=== PATIENT | female | born 1980 | race Caucasian/White ===

== ENCOUNTER 2018-08-15 19:48 | Emergency (ER) | payer OTHER ==
[2018-08-15 19:57] VITALS: BP 153/94; PULSE 85; TEMP 98.4; BMI 39.7
--- NOTE | 2018-08-15 19:59 | PDOC ---
History of Present Illness - General History Source: Patient Exam Limitations: No Limitations - History of Present Illness Initial Comments: 08/15/18 20:25 The patient is a 38 year old female with a significant past medical history of HLD who presents to the ED with 2 days of headache. Patient reports a gradual onset of a throbbing like headache on the front and back of her head on Saturday (08/13/18). She states her headache is progressively worsening and she reports photophobia, phonophobia, and nausea associated with present symptoms. Patient went to Urgent Care earlier today and was sent to the ED because she does not have a history of migraine headaches in the past. Denies fever or chills. Denies neck pain. Denies nausea. Denies chest pain or shortness of breath. Denies any other symptoms. PAST MEDICAL HISTORY: HLD PAST SURGICAL HISTORY: no significant history FAMILY HISTORY: no pertinent history SOCIAL HISTORY: Pt lives with family and is employed. MEDICATIONS: reviewed ALLERGIES: As per nursing notes General: No fevers or chills, no weakness, no weight loss HEENT: No change in vision. No sore throat,. No ear pain CardioVascular: No chest pain or shortness of breath Respiratory:No cough, or wheezing. Gastrointestinal: + nausea. no vomiting, diarrhea or constipation, No rectal bleeding Genitourinary: No dysuria, hematuria, or frequency Musculoskeletal: No joint or muscle pain or swelling Neurologic: + headache, photophobia, phonophobia. No vertigo, dizziness or loss of consciousness Psychiatric: nor depression Skin: No rashes or easy bruising Endocrine: no increased thirst or abnormal weight change Allergic: no skin or latex allergy All other systems reviewed and normal GENERAL: + Mild distress. The patient is awake, alert, and fully oriented. HEAD: Normal with no signs of trauma. NECK: No meningeal sign. EYES: Pupils equal, round and reactive to light, extraocular movements intact, sclera anicteric, conjunctiva clear. EXTREMITIES: Normal range of motion, no edema. NEUROLOGICAL: Normal speech, normal gait. PSYCH: Normal mood, normal affect. SKIN: Warm, Dry, normal turgor, no rashes or lesions noted.t <Sienna Garcia - Last Filed: 08/15/18 20:24> - General History Source: Patient Exam Limitations: No Limitations - History of Present Illness Initial Comments: 08/15/18 21:54 A portion of this note was documented by scribe services under my direction. I have reviewed the details of the note, within reason, and agree with the documentation. The case summary and management plan written by me. Head CT no acute pathology Assessment and plan: This is a 38-year-old female who comes in complaining of new onset migraine type headache. Patient does have a family history of migraines. Patient had a workup including a head CT. Patient was given Toradol and Reglan for her headache with nearly complete resolution of her symptoms. Patient discharged home with prescription for Reglan and told to get over-the- counter Motrin or Aleve. Patient has a primary care doctor to follow up with <Edel Walker I - Last Filed: 08/15/18 21:55> - General Chief Complaint: Headache Stated Complaint: HEADACHE Time Seen by Provider: 08/15/18 19:55 Past History <Sienna Garcia - Last Filed: 08/15/18 20:24> - Past Medical History COPD: No Hypercholesterolemia: Yes - Suicide/Smoking/Psychosocial Hx Smoking History: Never smoked Have you smoked in the past 12 months: No Information on smoking cessation initiated: No Hx Alcohol Use: (occasional) <Edel Walker I - Last Filed: 08/15/18 21:55> - Past Medical History Allergies/Adverse Reactions: Allergies Allergy/AdvReac Type Severity Reaction Status Date / Time No Known Allergies Allergy Verified 08/15/18 19:52 Home Medications: Ambulatory Orders Cholecalciferol (Vitamin D3) [Vitamin D3 -] 2,000 unit PO DAILY 08/15/18 Metoclopramide HCl [Reglan -] 10 mg PO TID #21 tablet 08/15/18 Vit B Comp/C/Folic/Iron/Vit E [Vitamin B Complex Tablet] 1 each PO DAILY *Physical Exam - Vital Signs Last Vital Signs Temp Pulse Resp BP Pulse Ox 98.4 F 85 18 153/94 100 08/15/18 19:48 08/15/18 19:48 08/15/18 19:48 08/15/18 19:48 08/15/18 19:48 <Sienna Garcia - Last Filed: 08/15/18 20:24> - Vital Signs Last Vital Signs Temp Pulse Resp BP Pulse Ox 98.4 F 85 18 153/94 100 08/15/18 19:48 08/15/18 19:48 08/15/18 19:48 08/15/18 19:48 08/15/18 19:48 <Edel Walker I - Last Filed: 08/15/18 21:55> *DC/Admit/Observation/Transfer - Attestations Scribe Attestion: 08/15/18 20:25 Documentation prepared by Sienna Garcia, acting as medical driver for Edel Walker MD <Sienna Garcia - Last Filed: 08/15/18 20:24> - Discharge Dispostion Decision to Admit order: No <Edel Walker I - Last Filed: 08/15/18 21:55> Diagnosis at time of Disposition: Migraine Qualifiers: Migraine type: unspecified Status migrainosus presence: without status migrainosus Intractability: not intractable Qualified Code(s): G43.909 - Migraine, unspecified, not intractable, without status migrainosus - Discharge Dispostion Disposition: HOME Condition at time of disposition: Stable - Prescriptions Prescriptions: Metoclopramide HCl [Reglan -] 10 mg PO TID #21 tablet - Patient Instructions Printed Discharge Instructions: Migraine -- Adult, DI for Migraine Additional Instructions: Your headache today is most likely a new onset of migraine-type headaches. You can take ibuprofen 3-4 tablets 3 times a day with food as needed, Follow-up with a neurologist if symptoms don't resolve over the completely over the next 48 hours. Return to the emergency department immediately with ANY new, persistent or worsening symptoms. Continue any medications as previously prescribed by your physician. You should follow up with your primary doctor as soon as possible regarding today's emergency department visit. . Please make sure your doctor reviews the results of your emergency evaluation. Thank you for coming to the Emergency Department today for your care. It was a pleasure to see you today. Please note that your evaluation is INCOMPLETE until you follow-up with your doctor.
[2018-08-15] MEDS ORDERED: METOCLOPRAMIDE HCL 10 MG TABLET (FP) PO ONE ×2 (20:25→20:27)
[2018-08-15] MEDS ORDERED: KETOROLAC TROMETHAMINE 60 MG/2 ML VIAL IM ONE (21:00)
[2018-08-15] MEDS ORDERED: KETOROLAC TROMETHAMINE 60 MG/2 ML VIAL ONE (21:14)
== END 2018-08-15 21:56 | disposition home or self-care (01) ==
LOC: FER 19:48
PROC: 3E0233Z Introduction of Anti-inflammatory into Muscle, Percutaneous Approach (ICD-10-PCS; principal; 2018-08-15)
DX: G43.909 Migraine, unspecified, not intractable, without status migrainosus (principal); E78.5 Hyperlipidemia, unspecified
CPT/HCPCS: 70450-TC; 99281-25